=== PATIENT | male | born 1985 ===

== ENCOUNTER 2023-07-23 19:44 | Inpatient (IN) | payer OTHER ==
[~2023-07-23] VITALS: Ht 175.3 cm; Wt 100.0 kg
[2023-07-23] MEDS ORDERED: SODIUM CHLORIDE 0.9% 1,800 ML IV ONE (20:15)
[2023-07-23] MEDS ORDERED: VANCOMYCIN PER PHARMACY 0 MG IV SCH (20:15)
[2023-07-23] MEDS ORDERED: cefTRIAXone 1GM/50ML D5W 50 ML IV SCH (20:15)
[2023-07-23 20:20] VITALS: PULSE 142; RESP 25; O2SAT 96
[2023-07-23] MEDS ORDERED: InsuLIN REG 1unit/0.01ml Soln (100units/ml) IV ONE (20:30)
[2023-07-23 20:34] LABS: Base Excess -5.2 mmol/L (-2.0-2.0)
[2023-07-23 21:17] LABS: Eosinophils # (auto) 0 10 ^3/uL (0-0.8); Hemoglobin 15.5 g/dL (13.5-17.5); Red Blood Cells 5.89 10^6/uL (4.5-5.90)
[2023-07-23 21:19] LABS: Basophils # (auto) 0 10 ^3/uL (0-0.2); Basophils % (auto) 0.4 % (0.0-2.0); Lymphocytes # (auto) 2.6 10 ^3/uL (0.4-5.4); Lymphocytes % (auto) 19.8 % (10.0-50.0); Mean Corpuscular Hemoglobin 26.2 pg (28.0-32.0); Mean Corpuscular Hgb Conc. 32.2 g/dL (32.0-36.0); Mean Corpuscular Volume 81.5 fL (80.0-100.0); Monocytes % (auto) 7.5 % (0.0-12.0); Neutrophils # (auto) 9.3 10 ^3/uL (1.6-8.6); Neutrophils % (auto) 72.3 % (37.0-80.0); Nucleated Red Blood Cells % 0.2 %; Red Cell Distribution Width 13.7 % (11.8-14.3); White Blood Cell 12.9 10^3/uL (4.4-10.8)
[2023-07-23 21:33] LABS: INR 1.12 (0.9-1.15); Partial Thromboplastin Time 27.4 SEC (24.5-34.5); Prothrombin Time 11.7 sec (9.3-11.8)
[2023-07-23 21:41] LABS: Alanine Aminotransferase 25 U/L (7-40); Albumin 5.1 g/dL (3.2-4.8); Alkaline Phosphatase 89 U/L (46-116); Anion Gap 15 (5-15); Aspartate Aminotransferase 35 U/L (13-40); BUN/Creatinine Ratio 18.4 (10.0-20.0); Blood Alcohol < 3.0 mg/dL (<10); Blood Urea Nitrogen 26 mg/dL (9-23); Calcium 9.7 mg/dL (8.7-10.4); Carbon Dioxide 20 mmol/L (20-30); Chloride 103 mmol/L (98-107); Glucose 234 mg/dL (74-106); Magnesium 2.1 mg/dL (1.6-2.6); Potassium 4.1 mmol/L (3.5-5.1); Sodium 138 mmol/L (136-145); Total Protein 7.6 g/dL (5.7-8.2)
[2023-07-23 22:05] LABS: Urine Bacteria NONE SEEN /hpf (None Seen); Urine Blood 3+ /uL (Negative); Urine Clarity Clear (Clear); Urine Color Yellow (Yellow); Urine Mucus FEW (None Seen); Urine Protein, UAD 3+ (Negative); Urine Urobilinogen Normal (Negative); Urine WBC 3 /hpf (0 - 3)
[2023-07-23 22:18] LABS: Amphetamine Screen, Urine Pos (NEGATIVE); Barbiturate Scree,Urine Neg (NEGATIVE); Benzodiazephine Screen, Urine Neg (NEGATIVE); Cocaine Screen, Urine Neg (NEGATIVE)
[2023-07-23 22:19] LABS: Cannabinoid Screen, Urine Neg (NEGATIVE); Opiate Scree,Urine Neg (NEGATIVE); Phencyclidine Screen, Urine Neg (NEGATIVE)
[2023-07-24] MEDS ORDERED: ONDANSETRON HCL 4 MG/2 ML VIAL IV PRN (00:30)
[2023-07-24] MEDS ORDERED: DEXTROSE (50%) 50ML SYRG IV PRN (00:30)
[2023-07-24] MEDS: INSULIN LANTUS (GLARGINE) 1 /0.01ml (100units/ml) SC SCH ×2 (00:35→09:56)
[2023-07-24] MEDS: METOPROLOL TARTRATE 50 MG TAB PO SCH ×2 (00:50→09:54)
[2023-07-24] MEDS ORDERED: SOD CHL 0.45% 1,000 ML IV ONE (02:30)
[2023-07-24] MEDS: ACCU-CHEK COMFORT CURVE STRIP VI SCH ×3 (06:50→17:12)
[2023-07-24] MEDS: InsuLIN REG 1unit/0.01ml Soln (100units/ml) SC SCH ×3 (06:50→17:00)
[2023-07-24 07:55] VITALS: PULSE 92; RESP 11; O2SAT 98
[2023-07-24] MEDS ORDERED: ENOXAPARIN SOD 40 MG/0.4 ML SYRINGE SC SCH (10:00)
[2023-07-24] MEDS ORDERED: D5W/SOD CHL 0.45%/KCL 20MEQ 1,000 ML IV SCH (18:45)
[2023-07-24] MEDS ORDERED: SOD CHL 0.45% WITH 20MEQ KCL 1,000 ML IV SCH (18:45)
[2023-07-24 19:35] VITALS: BP 137/79; PULSE 91; RESP 16; TEMP 98.7; O2SAT 97
[2023-07-24 20:15] VITALS: PULSE 95
[2023-07-24] MEDS ORDERED: InsuLIN REG 1unit/0.01ml Soln (100units/ml) SC SCH (22:00)
== END 2023-07-24 22:34 | disposition left against medical advice (07) | DRG 917 ==
LOC: EDBD 19:44 → EEVIPCON 19:44 → ER 19:44 → TELE 07-24 00:40
PROVIDERS: ADMIT Internal Medicine; ATTEND Internal Medicine
DX: T43.654A Poisoning by methamphetamines, undetermined, initial encounter (principal); G92.8 Other toxic encephalopathy; E87.20 Acidosis, unspecified; M62.82 Rhabdomyolysis; N17.9 Acute kidney failure, unspecified; F15.129 Other stimulant abuse with intoxication, unspecified; Z53.29 Procedure and treatment not carried out because of patient's decision for other reasons; I10 Essential (primary) hypertension; D72.829 Elevated white blood cell count, unspecified; E11.65 Type 2 diabetes mellitus with hyperglycemia; Z79.4 Long term (current) use of insulin; Z91.199 Patient's noncompliance with other medical treatment and regimen due to unspecified reason
CPT/HCPCS: 36415; 36600; 71045; 80053; 80307; 80320; 81001; 82010; 82140; 82550; 82805; 82962; 83605; 83735; 83930; 84443; 84484; 85025; 85610; 85730; 86850; 86900; 86901; 87040; 87086; 93005; 99291; G0378; J1815